=== PATIENT | female | born 1980 | race African-American/Black ===

== ENCOUNTER 2016-03-18 04:49 | Emergency (ER) | payer OTHER ==
[~2016-03-18] VITALS: Ht 157.5 cm; Wt 77.1 kg
[~2016-03-18 04:49] MED LIST: ACETAMINOPHEN650 M5 PO; ALDACTONE25 MG PO; AMLODIPINE; AMLODIPINE BESYL5 MG PO; COLACE100 MG PO; FLEXERIL PO; HYDROCHLOROTHIA25 M1; HYDROCHLOROTHIA25 M1 PO; HYDROCHLOROTHIA25 M2 PO; LOPRESSOR 50 MG50 M1 PO; NAPROSYN500 MG PO; NOHOMEMEDICATIONS; NORVASC10 MG PO
[2016-03-18 06:21] LABS: EOSINOPHILS 0.9 % (0.0-3.0); HEMATOCRIT 40.5 % (37.0-47.0); HEMOGLOBIN 13.5 gm/dL (12.0-15.0); LYMPHOCYTES 25.2 % (24.0-44.0); MCH 28.8 pg (26.0-34.0); MCHC 33.2 % (28.0-37.0); MCV 86.7 fL (80.0-100.0); MONOCYTES 4.4 % (1.0-8.0); PLATELET COUNT 286 thou/uL (150-400); POLYS 68.5 % (36.0-66.0); RBC 4.68 mil/uL (4.20-5.00); RDW 17.6 % (10.5-14.5); WBC 7.4 thou/uL (4.0-11.0)
[2016-03-18 06:22] LABS: MANUAL DIFF NO
[2016-03-18] MEDS ORDERED: NAPROSYN500 MG PO (07:08)
[2016-03-18 07:14] LABS: CREATININE 0.7 mg/dL (0.6-1.3)
[2016-03-18 07:19] LABS: ALBUMIN 3.7 g/dL (3.4-5.0); TOTAL BILIRUBIN 0.3 mg/dL (<0.1-1.0); TOTAL PROTEIN 8.6 g/dL (6.4-8.2)
== END 2016-03-18 07:45 | disposition home or self-care (01) ==
LOC: ER 04:49
PROVIDERS: Emergency Medicine
DX: D25.9 Leiomyoma of uterus, unspecified (principal); I10 Essential (primary) hypertension; Z88.8 Allergy status to other drugs, medicaments and biological substances

== ENCOUNTER 2018-09-30 18:00 | Emergency (ER) | payer OTHER ==
[~2018-09-30] VITALS: Ht 157.5 cm; Wt 72.6 kg
[2018-09-30 18:30] LABS: ABSOLUTE NEUTROPHILS 3.5 thou/uL (1.4-8.2); EOSINOPHILS 0.7 % (0.0-3.0); HEMATOCRIT 34.3 % (37.0-47.0); HEMOGLOBIN 11.2 gm/dL (12.0-15.0); LYMPHOCYTES 39.8 % (24.0-44.0); MCHC 32.7 g/dL (28.0-37.0); MCV 82.5 fL (80.0-100.0); PLATELET COUNT 268 thou/uL (150-400); POLYS 51.5 % (36.0-66.0); RBC 4.15 mil/uL (4.20-5.00); WBC 6.8 thou/uL (4.0-11.0)
[2018-09-30 18:36] LABS: ANION GAP 15 mmol/L (7-16); BUN 11 mg/dL (7-18); CALCIUM 9.5 mg/dL (8.5-10.1); CHLORIDE 98 mmol/L (98-107); CO2 25 mmol/L (21-32); CREATININE 0.8 mg/dL (0.6-1.0); GLUCOSE 110 mg/dL (74-106); SODIUM 138 mmol/L (136-145)
[2018-09-30 18:47] LABS: ALBUMIN 3.7 g/dL (3.4-5.0); SGOT 86 U/L (15-37); SGPT 26 U/L (30-65); TOTAL BILIRUBIN 0.2 mg/dL (<0.1-1.0); TOTAL PROTEIN 9.1 g/dL (6.4-8.2); TROPONIN-I <0.06 ng/mL (<0.06)
[2018-09-30] MEDS ORDERED: AZOR 10-40 MG1 EACH PO (18:54)
[2018-09-30] MEDS ORDERED: CARVEDILOL12.5 MG PO (18:54)
[2018-09-30 20:38] VITALS: BP 145/100
[2018-09-30] MEDS ORDERED: NAPROSYN500 MG PO (20:43)
[2018-09-30] MEDS ORDERED: POTASSIUM20 PO (20:43)
--- NOTE | 2018-10-01 07:49 | EKG ---
[address] [address] ELECTROCARDIOGRAM REPORT Name: IRINA KENT Room #: [facility]#: [id number] Admission: 09/30/18 Attend Phys: Discharge: 09/30/18 Date of : 82 Report #: [id number] THIS REPORT FOR: //name// [facility] ED Test Date: 2018-09-30 Test Time: 18:06:55 Pat Name: IRINA KENT Department: Room: Gender: F [employer]: KALIA : 1980 Requested By: Jess Pham Order Number: [id number] MD: Rolando Mi Measurements Intervals Melvin Rate: 86 P: 42 [place]: 161 QRS: -13 QRSD: 81 T: 38 QT: 374 QTc: 448 Interpretive Statements Sinus rhythm Left atrial enlargement Compared to ECG 11/18/2013 14:18:50 Atrial abnormality now present Poor R-wave progression no longer present Electronically Signed On 10-01-2018 7:48:48 CDT by Rolando Mi [email or web address] <ELECTRONICALLY SIGNED> By: Rolando Mi MD 10/01/18 0748 05 05 Rolando Mi MD /SHARON
== END 2018-09-30 20:49 | disposition home or self-care (01) ==
LOC: ER 18:00
PROVIDERS: Physician Assistant
DX: I16.0 Hypertensive urgency (principal); I10 Essential (primary) hypertension; E87.6 Hypokalemia; Z88.8 Allergy status to other drugs, medicaments and biological substances; Z98.51 Tubal ligation status